=== PATIENT | female | born 1945 | race American Indian/Alaskan Native ===

== ENCOUNTER 2020-01-16 20:10 | Observation (INO) | payer MEDICARE ==
[2020-01-16] MEDS ORDERED: SODIUM CHLORIDE 0.9% 1000 ML 1,000 ML IV ONE (21:14)
[2020-01-16] MEDS ORDERED: VANCOMYCIN 750 MG in SODIUM CHLORIDE 0.9% 500 ML 500 ML IV ONE (21:15)
[2020-01-16] MEDS ORDERED: SODIUM CHLORIDE 0.9% 1000 ML IV SOLN IV ONE (21:15)
[2020-01-16] MEDS ORDERED: IPRATROPIUM/ALBUTEROL SULFATE 3 ML AMPUL.NEB IH ONE (21:15)
[2020-01-16] MEDS ORDERED: methylPREDNISolone Sod Succinate 125 MG/2 ML INJ IV ONE (21:19)
--- NOTE | 2020-01-16 21:31 | Emergency Department Report ---
ED Shortness of Breath HPI - General Chief Complaint: Dyspnea/Respdistress Stated Complaint: WANG/COPD/LUNG CA Time Seen by Provider: 01/16/20 21:13 Source: patient Mode of arrival: Ambulatory Limitations: No Limitations - History of Present Illness Initial Comments: CC: " Since the cancer, I have been having trouble breathing." HPI: This is a 74-year-old female with history of COPD, stage II lung cancer and anxiety who presents with shortness of breath. After receiving chemotherapy treatment this morning, she went home. She had shortness of breath. She has stage II lung cancer. She was diagnosed 4 years ago. Her chemotherapy this is Dr. Narvaez. She received medical care at [facility] and [facility]. She has chronic cough. She has chronic sputum production. She denies fever. She denies wheezing. She denies chest pain. She denies leg pain. She denies abdominal pain. She used MDI today with minimal relief. Patient explains that she has had severe shortness of breath since the diagnosis of cancer 4 years ago. Her son brought her to the closest hospital due to severe shortness of breath. According to daughter Sejal [phone], patient has severe anxiety. MD Complaint: shortness of breath, cough -: Gradual, This afternoon Severity: moderate Consistency: constant Improves With: nothing Worsens With: nothing Known History Of: COPD, other (stage II lung CA) Associated Symptoms: cough, sputum production - Related Data Allergies Allergy/AdvReac Type Severity Reaction Status Date / Time citric acid Allergy Anaphylaxis Verified 01/16/20 20:22 Sulfa (Sulfonamide Allergy Anaphylaxis Verified 01/16/20 20:22 Antibiotics) iv contrast Allergy Hives Uncoded 01/16/20 22:38 ED Review of Systems ROS: Stated complaint: WANG/COPD/LUNG CA Other details as noted in HPI Comment: All other systems reviewed and negative Constitutional: denies: fever Respiratory: cough, shortness of breath Cardiovascular: denies: chest pain Gastrointestinal: denies: abdominal pain, nausea, vomiting Skin: denies: rash, lesions Neurological: denies: headache, weakness Psychiatric: anxiety ED Past Medical Hx - Past Medical History Previous Medical History?: Yes Hx COPD: Yes Additional medical history: Lung CA - Surgical History Past Surgical History?: No - Social History Smoking Status: Former Smoker Substance Use Type: None ED Physical Exam - General Limitations: No Limitations General appearance: alert, in no apparent distress, anxious, other (Speaking full word sentences, frequent cough) - Head Head exam: Present: atraumatic, normocephalic - Eye Eye exam: Present: normal appearance - ENT ENT exam: Present: mucous membranes moist - Neck Neck exam: Present: normal inspection, full ROM - Respiratory Respiratory exam: Present: respiratory distress, wheezes, rales, rhonchi, prolonged expiratory. Absent: stridor, accessory muscle use, decreased breath sounds - Cardiovascular Cardiovascular Exam: Present: normal rhythm, tachycardia, normal heart sounds. Absent: systolic murmur, diastolic murmur, rubs, gallop - GI/Abdominal GI/Abdominal exam: Present: soft, normal bowel sounds. Absent: distended, tenderness, guarding, rebound - Extremities Exam Extremities exam: Present: normal inspection - Neurological Exam Neurological exam: Present: alert, oriented X3 - Psychiatric Psychiatric exam: Present: normal affect, normal mood - Skin Skin exam: Present: warm, dry, intact, normal color. Absent: rash ED Course Vital Signs 01/16/20 01/16/20 01/16/20 20:20 21:16 21:30 Temperature 98.1 F Pulse Rate 121 H 114 H Respiratory 20 30 H Rate Blood Pressure 145/94 142/114 135/86 O2 Sat by Pulse 92 98 Oximetry 01/16/20 01/16/20 21:46 23:19 Temperature Pulse Rate 113 H Respiratory 32 H 20 Rate Blood Pressure 135/86 O2 Sat by Pulse 100 96 Oximetry ED Medical Decision Making - Lab Data Result diagrams: 01/16/20 21:20 01/16/20 21:20 - EKG Data -: EKG Interpreted by Pr EKG shows normal: sinus rhythm, axis, intervals, QRS complexes, ST-T waves Rate: tachycardia - EKG Data 01/16/20 23:32 EKG obtained 2310 EKG interpreted by mi Sinus tachycardia 110 bpm normal axis prolonged QTC no ST elevation nonspecific T wave pattern - Radiology Data Radiology results: report reviewed CHEST 1 VIEW INDICATION / CLINICAL INFORMATION: MAIN. COMPARISON: None available. FINDINGS: SUPPORT DEVICES: Left-sided port with tip terminating in the mid SVC. HEART / MEDIASTINUM: No significant abnormality. LUNGS / PLEURA: Moderate diffuse interstitial opacification. No focal consolidation. No significant effusion. No pneumothorax. ADDITIONAL FINDINGS: No significant additional findings. IMPRESSION: 1. Moderate diffuse interstitial opacification. Findings can be seen in setting of chronic interstitial lung disease. Recommend correlation with recent prior chest imaging if available. Consider further follow-up as warranted. VQ scan low probability for pulmonary embolism - Medical Decision Making Acute COPD exacerbation: Patient's has hypoxia in spite oxygen supplementation patient uses home oxygen 2 L nasal cannula No evidence of pulmonary embolism or pneumonia according to work-up performed emergency department including lung perfusion scan and chest radiograph Patient is admitted to [facility] service Critical care attestation.: If time is entered above; I have spent that time in minutes in the direct care of this critically ill patient, excluding procedure time. ED Disposition Clinical Impression: Acute respiratory failure with hypoxia, COPD with acute exacerbation, Lung cancer Disposition: OP ADMIT IP TO THIS HOSP Is pt being admited?: Yes Does the pt Need Aspirin: No Condition: Fair
[2020-01-16 21:40] LABS: Basophils % (Auto) 0.2 % (0.0-1.8); Eosinophils # (Auto) 0.1 K/mm3 (0.0-0.4); Eosinophils % (Auto) 0.9 % (0.0-4.3); Hematocrit 28.6 % (30.3-42.9); Hemoglobin 8.7 gm/dl (10.1-14.3); Lymphocytes # (Auto) 0.4 K/mm3 (1.2-5.4); Lymphocytes % (Auto) 4.3 % (13.4-35.0); Mean Corpuscular HGB Conc 31 % (30-34); Mean Corpuscular Volume 92 fl (79-97); Monocytes # (Auto) 1.2 K/mm3 (0.0-0.8); Monocytes % (Auto) 11.3 % (0.0-7.3); Platelet Count 526 K/mm3 (140-440); Red Blood Count 3.11 M/mm3 (3.65-5.03); Red Cell Distribution Width 18.2 % (13.2-15.2)
[2020-01-16 21:59] LABS: INR 0.97 (0.87-1.13)
[2020-01-16 22:00] LABS: Partial Thromboplastin Time 27.9 Sec. (24.2-36.6)
[2020-01-16] MEDS ORDERED: VANCOMYCIN 750 MG in SODIUM CHLORIDE 0.9% 250ML 250 ML IV ONE (22:00)
[2020-01-16] MEDS ORDERED: VANCOMYCIN PHARMACY TO DOSE IV SCH (22:00)
[2020-01-16 22:01] LABS: Alanine Aminotransferase 6 units/L (7-56); Albumin 3.6 g/dL (3.9-5); Blood Urea Nitrogen 10 mg/dL (7-17); Calcium 9.8 mg/dL (8.4-10.2); Hemolysis Index 2
[2020-01-16 22:03] LABS: BUN/Creatinine Ratio 20
--- NOTE | 2020-01-16 22:08 | XRay Report ---
CHEST 1 VIEW INDICATION / CLINICAL INFORMATION: MAIN. COMPARISON: None available. FINDINGS: SUPPORT DEVICES: Left-sided port with tip terminating in the mid SVC. HEART / MEDIASTINUM: No significant abnormality. LUNGS / PLEURA: Moderate diffuse interstitial opacification. No focal consolidation. No significant e ffusion. No pneumothorax. ADDITIONAL FINDINGS: No significant additional findings. IMPRESSION: 1. Moderate diffuse interstitial opacification. Findings can be seen in setting of chronic interstiti al lung disease. Recommend correlation with recent prior chest imaging if available. Consider further follow-up as warranted. Signer Name: Krishna Cassidy MD Signed: 01/16/2020 10:04 PM Workstation Name: [id number]
[2020-01-17] MEDS ORDERED: CEFEPIME/NS 2 GM/100 ML 2 GM/100 ML BAG IV SCH
--- NOTE | 2020-01-17 00:28 | Nuclear Medicine Report ---
NUCLEAR MEDICINE PERFUSION LUNG SCAN INDICATION / CLINICAL INFORMATION: Tachycardia dyspnea history of lung cancer. TECHNIQUE: 4.6 mCi of Tc-99m MAA were given by IV. COMPARISON: Chest radiograph dated today's date. FINDINGS: PERFUSION: No significant perfusion defects. ADDITIONAL FINDINGS: None. IMPRESSION: 1. Low probability for pulmonary embolism. Signer Name: Tyrone Hoang MD Signed: 01/17/2020 12:24 AM Workstation Name: [id number]
--- NOTE | 2020-01-17 02:57 | History and Physical Report ---
History of Present Illness Date of examination: 01/17/20 Date of admission: 01/17/20 00:54 Chief complaint: Shortness of breath History of present illness: 74 year old female presenting with shortness of breath and cough going on for about 12-24 hour after receiving chemotherapy for stage II lung cancer. There is history of pleuritic chest pain and chills but no fever. Cough is productive of yellow sputum. Past History Past Medical History: COPD, other (LUNG CANCER) Past Surgical History: No surgical history Social history: no significant social history Family history: no significant family history Medications and Allergies Allergies Allergy/AdvReac Type Severity Reaction Status Date / Time citric acid Allergy Anaphylaxis Verified 01/16/20 20:22 Sulfa (Sulfonamide Allergy Anaphylaxis Verified 01/16/20 20:22 Antibiotics) iv contrast Allergy Hives Uncoded 01/16/20 22:38 Home Medications Medication Instructions Recorded Confirmed Last Taken Type Benzonatate [Tessalon Perles] 100 mg PO Q8HR 01/17/20 01/17/20 Unknown History Latanoprost 0.005% [Xalatan 0.005%] 1 drop OP QPM 01/17/20 01/17/20 Unknown History Mirabegron [Myrbetriq] 25 mg PO DAILY 01/17/20 01/17/20 Unknown History buPROPion [Wellbutrin] 75 mg PO BID 01/17/20 01/17/20 Unknown History dronabinoL [Dronabinol] 2.5 mg PO DAILY 01/17/20 01/17/20 Unknown History Active Meds: Active Medications Albuterol/Ipratropium (Duoneb *Not For Prn Use*) 1 ampul IH QIDRT JEREMY Heparin Sodium (Porcine) (Heparin) 5,000 unit SUB-Q Q12HR JEREMY Cefepime HCl (Cefepime/Ns 2 Gm/100 Ml) 2 gm in 100 mls @ 200 mls/hr IV Q8H [facility]; Protocol Last Admin: 01/17/20 01:37 Dose: 200 mls/hr Documented by: Vancomycin HCl 750 mg/ Sodium (Chloride) 265 mls @ 166.667 mls/hr IV Q18H JEREMY Methylprednisolone Sodium Succinate (Solu-Medrol) 60 mg IV Q8HR [facility] Review of Systems Constitutional: chills, no weight loss, no weight gain, no fever, no sweats, no night sweats, no anorexia, no fatigue, no weakness, no malaise Eyes: bilateral: other (NO BILATERAL EYE SYMPTOM) Ears, nose, mouth and throat: no deferred, no ear pain, no nose pain, no nasal congestion, no nasal discharge Breasts: deferred Cardiovascular: shortness of breath, no chest pain, no orthopnea, no palpitations, no syncope, no lightheadedness Respiratory: cough, shortness of breath, wheezing Gastrointestinal: no abdominal pain, no nausea, no vomiting, no diarrhea, no constipation, no change in bowel habits, no hematemesis, no melena, no hematochezia Genitourinary Female: no Menstruation: postmenopausal Rectal: no pain Musculoskeletal: no neck stiffness, no neck pain, no low back pain, no muscle weakness, no muscle cramps Integumentary: no rash, no pruritis, no redness, no sores, no wounds, no jaundice, no boils, no blisters, no growths, no bullae, no lesions, no darkening of skin, no depigmentation, no acne, no dryness, no color changes Neurological: no weakness, no parathesias, no numbness, no tingling, no seizures, no syncope, no tremors, no vertigo, no headaches, no convulsions, no aphasia, no change in speech, no change in mentation, no confusion, no double vision Psychiatric: no insomnia, no hypersomnia, no change in appetite, no change in libido, no suicidal ideation, no hopelessness, no anhedonia, no confusion Endocrine: no polyphagia, no polydipsia, no polyuria, no nocturia, no excessive sweating, no flushing, no palpatations Hematologic/Lymphatic: no easy bruising, no easy bleeding Exam - Constitutional Vitals: Temp Pulse Resp BP Pulse Ox 97.7 F 102 H 47 H 142/82 99 01/17/20 02:16 01/17/20 02:00 01/17/20 02:00 01/17/20 02:00 01/17/20 02:00 General appearance: Present: mild distress - EENT Eyes: Present: PERRL, EOM intact ENT: hearing intact, clear oral mucosa, dentition normal - Neck Neck: Present: supple, normal ROM. Absent: rigidity, enlarged thyroid, carotid bruits - Respiratory Respiratory: bilateral: diminished, wheezing - Cardiovascular Rhythm: regular Heart Sounds: Present: S1 & S2. Absent: gallop, systolic murmur, diastolic murmur, click - Extremities Extremities: no ischemia, No edema Peripheral Pulses: within normal limits - Abdominal General gastrointestinal: Present: soft, non-tender, non-distended. Absent: tender, distended, rigid Female genitourinary: Present: deferred - Rectal Rectal Exam: deferred - Integumentary Integumentary: Present: clear, warm, dry. Absent: jaundice, clammy - Musculoskeletal Musculoskeletal: strength equal bilaterally HEART Score - HEART Score Risk factors: 1-2 risk factors Troponin: Troponin T < 0.010 ng/mL (0.00-0.029) 01/16/20 21:20 Troponin: < normal limit - Critical Actions Critical Actions: 0-3 pts:0.9-1.7%risk of adverse cardiac event.Candidate for discharge Results - Labs CBC & Chem 7: 01/16/20 21:20 01/16/20 21:20 Labs: Laboratory Last Values WBC 10.4 K/mm3 (4.5-11.0) 01/16/20 21:20 RBC 3.11 M/mm3 (3.65-5.03) L 01/16/20 21:20 Hgb 8.7 gm/dl (10.1-14.3) L 01/16/20 21:20 Hct 28.6 % (30.3-42.9) L 01/16/20 21:20 MCV 92 fl (79-97) 01/16/20 21:20 MCH 28 pg (28-32) 01/16/20 21:20 MCHC 31 % (30-34) 01/16/20 21:20 RDW 18.2 % (13.2-15.2) H 01/16/20 21:20 Plt Count 526 K/mm3 (140-440) H 01/16/20 21:20 Lymph % (Auto) 4.3 % (13.4-35.0) L 01/16/20 21:20 Bland % (Auto) 11.3 % (0.0-7.3) H 01/16/20 21:20 Eos % (Auto) 0.9 % (0.0-4.3) 01/16/20 21:20 Baso % (Auto) 0.2 % (0.0-1.8) 01/16/20 21:20 Lymph # 0.4 K/mm3 (1.2-5.4) L 01/16/20 21:20 Bland # 1.2 K/mm3 (0.0-0.8) H 01/16/20 21:20 Eos # 0.1 K/mm3 (0.0-0.4) 01/16/20 21:20 Baso # 0.0 K/mm3 (0.0-0.1) 01/16/20 21:20 Seg Neutrophils % 83.3 % (40.0-70.0) H 01/16/20 21:20 Seg Neutrophils # 8.6 K/mm3 (1.8-7.7) H 01/16/20 21:20 PT 13.1 Sec. (12.2-14.9) 01/16/20 21:20 INR 0.97 (0.87-1.13) 01/16/20 21:20 APTT 27.9 Sec. (24.2-36.6) 01/16/20 21:20 Sodium 140 mmol/L (137-145) 01/16/20 21:20 Potassium 3.9 mmol/L (3.6-5.0) 01/16/20 21:20 Chloride 101.1 mmol/L (98-107) 01/16/20 21:20 Carbon Dioxide 22 mmol/L (22-30) 01/16/20 21:20 Anion Gap 21 mmol/L 01/16/20 21:20 BUN 10 mg/dL (7-17) 01/16/20 21:20 Creatinine 0.5 mg/dL (0.6-1.2) L 01/16/20 21:20 Estimated GFR > 60 ml/min 01/16/20 21:20 BUN/Creatinine Ratio 20 % 01/16/20 21:20 Glucose 125 mg/dL (65-100) H 01/16/20 21:20 Lactic Acid 1.30 mmol/L (0.7-2.0) 01/17/20 00:41 Calcium 9.8 mg/dL (8.4-10.2) 01/16/20 21:20 Total Bilirubin 0.20 mg/dL (0.1-1.2) 01/16/20 21:20 AST 16 units/L (5-40) 01/16/20 21:20 ALT 6 units/L (7-56) L 01/16/20 21:20 Alkaline Phosphatase 75 units/L (35-129) 01/16/20 21:20 Troponin T < 0.010 ng/mL (0.00-0.029) 01/16/20 21:20 NT-Pro-B Natriuret Pep 198.9 pg/mL (0-900) 01/16/20 21:20 Total Protein 7.6 g/dL (6.3-8.2) 01/16/20 21:20 Albumin 3.6 g/dL (3.9-5) L 01/16/20 21:20 Albumin/Globulin Ratio 0.9 % 01/16/20 21:20 Microbiology: Microbiology 01/16/20 21:27 Peripheral/Venous Blood Culture - Preliminary Culture in Progress 01/16/20 21:20 Peripheral/Venous Blood Culture - Preliminary Culture in Progress Velázquez/IV: IV Catheter Type [Right Hand] INT / Saline Lock Assessment and Plan - Patient Problems (1) Acute respiratory failure with hypoxia Current Visit: Yes Status: Acute Plan to address problem: 1.OXYGEN PER RESPIRATORY PROTOCOL 2. DUONEBULIZER 3. I.V SOLUMEDROL (2) COPD with acute exacerbation Current Visit: Yes Status: Acute Plan to address problem: 1. DUONEBULIZER 2. I.V SOLUMEDROL 3. I.V CEFEPIME ANTIBIOTIC 4. ROBITUSSIN FOR COUGH 5. OXYGEN PER RESPIRTATORY PROTOCOL (3) Lung cancer Current Visit: Yes Status: Acute Plan to address problem: 1. WILL CONSULT ONCOLOGY WHEN AVAILABLE 2. PATIENT TO CONTINUE ONGOING CHEMOTHERAPY PER ONCOLOGY PROGRAM.
[2020-01-17] MEDS: methylPREDNISolone Sod Succinate 40 MG/1 ML INJ IV SCH ×3 (05:13→21:15)
[2020-01-17] MEDS: IPRATROPIUM/ALBUTEROL SULFATE 3 ML AMPUL.NEB IH SCH ×4 (09:48→20:18)
[2020-01-17] MEDS: HEPARIN 5,000 UNIT/1 ML VIAL SUB-Q SCH ×2 (09:59→21:15)
[2020-01-17] MEDS ORDERED: VANCOMYCIN 750 MG in SODIUM CHLORIDE 0.9% 250ML 250 ML IV SCH ×2 (10:00→22:00)
[2020-01-17] MEDS: CEFEPIME/NS 2 GM/100 ML 2 GM/100 ML BAG IV SCH ×2 (10:03→21:14)
[2020-01-17] MEDS ORDERED: MAGNESIUM HYDROXIDE (MOM) ORAL LIQD UDC PO ONE (13:10)
[2020-01-17] MEDS ORDERED: MAGNESIUM HYDROXIDE (MOM) ORAL LIQD UDC PO PRN (13:10)
[2020-01-17] MEDS: BENZONATATE 100 MG CAP PO SCH ×2 (13:32→21:15)
[2020-01-17 14:40] LABS: Creatine Kinase MB 4.7 ng/mL (0.0-4.0)
--- NOTE | 2020-01-17 19:27 | Event Note ---
Date: 01/17/20 I have seen and examined the patient at the bedside this morning Patient was admitted early this morning with acute respiratory failure secondary to Acute exacerbation of COPD, patient has history of lung cancer Patient's medications patient's chart reviewed Agree with the current management Closely monitor the patient and adjust management as needed Plan of care reviewed with the patient and her nurse
[2020-01-17] MEDS: buPROPion 75 MG TAB PO SCH (21:15)
[2020-01-18] MEDS: methylPREDNISolone Sod Succinate 40 MG/1 ML INJ IV SCH (05:01)
[2020-01-18] MEDS: BENZONATATE 100 MG CAP PO SCH (05:01)
[2020-01-18] MEDS: IPRATROPIUM/ALBUTEROL SULFATE 3 ML AMPUL.NEB IH SCH (08:03)
[2020-01-18] MEDS: CEFEPIME/NS 2 GM/100 ML 2 GM/100 ML BAG IV SCH (09:58)
[2020-01-18] MEDS: HEPARIN 5,000 UNIT/1 ML VIAL SUB-Q SCH (09:59)
[2020-01-18] MEDS ORDERED: DRONABINOL 2.5 MG CAP PO SCH (10:00)
[2020-01-18] MEDS ORDERED: NON-FORMULARY EACH (Mirabegron [Myrbetriq] 25 MG) PO SCH (10:00)
[2020-01-18] MEDS: buPROPion 75 MG TAB PO SCH (10:02)
--- NOTE | 2020-01-18 11:00 | Discharge Summary ---
Providers - Providers Date of Admission: 01/17/20 00:54 Date of discharge: 01/18/20 Attending physician: LILLI WHITESIDE Primary care physician: ABRAHAM GARCIA Hospitalization Condition: Fair Disposition: DC-01 TO HOME OR SELFCARE Time spent for discharge: 32 min Core Measure Documentation - Palliative Care Palliative Care/ Comfort Measures: Not Applicable - Core Measures Any of the following diagnoses?: none Exam - Constitutional Vitals: Temp Pulse Resp BP Pulse Ox 99.0 F 100 H 18 105/49 100 01/18/20 06:02 01/18/20 08:03 01/18/20 08:03 01/18/20 06:02 01/18/20 09:50 General appearance: Present: no acute distress, well-nourished - EENT Eyes: Present: PERRL, EOM intact - Neck Neck: Present: supple, normal ROM - Respiratory Respiratory effort: normal Respiratory: bilateral: diminished, rales, negative: rhonchi, wheezing - Cardiovascular Rhythm: regular Heart Sounds: Present: S1 & S2 - Extremities Extremities: no ischemia, No edema - Abdominal General gastrointestinal: Present: soft, non-tender, non-distended, normal bowel sounds - Integumentary Integumentary: Present: clear, warm - Musculoskeletal Musculoskeletal: strength equal bilaterally, generalized weakness - Psychiatric Psychiatric: appropriate mood/affect, cooperative - Neurologic Neurologic: CNII-XII intact, moves all extremities Plan Activity: advance as tolerated Diet: regular Additional Instructions: Advised to see your private lever miller in 3 to 5 days. Advised to continue home oxygen, nebulizers as before. If you have worsening symptoms contact MD or go to emergency room as needed Follow up with: ABRAHAM GARCIA MD [Primary Care Provider] - 7 Days Prescriptions: levoFLOXacin [Levaquin TAB] 500 mg PO QDAY #5 tablet Prednisone [predniSONE 10 mg (6-Day Pack, 21 Tabs)] 10 mg PO .TAPER #1 tab.ds.pk Albuterol Mdi (or & Nicu Only) [ProAir HFA Inhaler] 2 puff IH QID PRN #8.5 gram PRN Reason: Shortness Of Breath
[2020-01-18] MEDS ORDERED: IPRATROPIUM/ALBUTEROL SULFATE 3 ML AMPUL.NEB IH SCH (14:00)
[2020-01-18 17:44] VITALS: BP 119/70
== END 2020-01-18 16:55 | disposition home or self-care (01) ==
LOC: ED 20:10 → 4A 01-17 00:54 → 3A 01-17 03:05
PROVIDERS: ADMIT Internal Medicine; ATTEND Internal Medicine
DX: J96.01 Acute respiratory failure with hypoxia (principal); J44.1 Chronic obstructive pulmonary disease with (acute) exacerbation; C34.90 Malignant neoplasm of unspecified part of unspecified bronchus or lung
CPT/HCPCS: 36415; 71045; 78580; 80053; 82140; 82550; 82553; 83880; 84484; 85025; 85610; 85730; 87040; 93005; 94640; 94644; 94760; 96365; 96366; 96367; 96368; 96372; 96375; 96376; 99285; A9540; G0378; J0692; J1644; J2920; J2930; J3370; J7030; J7050; Q0167

== ENCOUNTER 2020-01-30 21:58 | Inpatient (IN) | payer MEDICARE ==
[2020-01-30] MEDS ORDERED: MAGNESIUM SULFATE 2 GM/50 ML BAG IV ONE (22:40)
[2020-01-30] MEDS ORDERED: methylPREDNISolone Sod Succinate 125 MG/2 ML INJ IV ONE (22:40)
[2020-01-30] MEDS ORDERED: ALBUTEROL 2.5 MG/3 ML NEBU IH ONE (22:40)
[2020-01-30] MEDS ORDERED: IPRATROPIUM 0.02% NEBU 2.5 ML IH ONE (22:40)
--- NOTE | 2020-01-30 22:46 | Emergency Department Report ---
HPI - General Chief Complaint: Dyspnea/Respdistress Time Seen by Provider: 01/30/20 22:29 - HPI HPI: Room 24 Patient is a 74-year-old female present with a chief complaint of shortness of breath. The patient states she is felt short of breath for the past 2 weeks after her initial chemotherapy treatment. Patient states she had chemotherapy again today and shortness of breath worsened. Patient missed any cough that is nonproductive. Patient complains of dyspnea on exertion. The patient states approximate 2 hours ago she had grabbing left-sided chest pain that lasted 15 to 20 minutes. Patient denies nausea/vomiting or diaphoresis. Patient states she is uncertain if she is had a fever but she has had "hot flashes" at times. ED Past Medical Hx - Past Medical History Hx of Cancer: Yes (Lung CA on chemotherapy) Hx COPD: Yes (2 L home O2) Additional medical history: Lung CA - Surgical History Additional Surgical History: Port placement - Family History Family history: no significant - Social History Smoking Status: Former Smoker (None x6 years) Substance Use Type: None (Denies illicit drug use), Alcohol (Frequently) - Medications Home Medications: Home Medications Medication Instructions Recorded Confirmed Last Taken Type Benzonatate [Tessalon Perles] 100 mg PO Q8HR 01/17/20 01/17/20 Unknown History Latanoprost 0.005% 1 drop OP QPM 01/17/20 01/17/20 Unknown History Mirabegron [Myrbetriq] 25 mg PO DAILY 01/17/20 01/17/20 Unknown History buPROPion [Wellbutrin] 75 mg PO BID 01/17/20 01/17/20 Unknown History dronabinoL [Dronabinol] 2.5 mg PO DAILY 01/17/20 01/17/20 Unknown History Albuterol Mdi (or & Nicu Only) 2 puff IH QID PRN #8.5 gram 01/18/20 Unknown Rx [ProAir HFA Inhaler] Prednisone [predniSONE 10 mg 10 mg PO .TAPER #1 tab.ds.pk 01/18/20 Unknown Rx (6-Day Pack, 21 Tabs)] levoFLOXacin [Levaquin TAB] 500 mg PO QDAY #5 tablet 01/18/20 Unknown Rx ED Review of Systems ROS: Stated complaint: SOB,COPD,ASTHMA Other details as noted in HPI Constitutional: fever (?). denies: diaphoresis Respiratory: cough, shortness of breath, SOB with exertion Cardiovascular: chest pain, dyspnea on exertion Endocrine: no symptoms reported Gastrointestinal: denies: nausea, vomiting Physical Exam - Physical Exam Vital Signs: Vital Signs 01/30/20 22:11 Temperature 97.6 F Pulse Rate 124 H Respiratory 18 Rate Blood Pressure 122/75 O2 Sat by Pulse 100 Oximetry Physical Exam: GENERAL: The patient is well-developed well-nourished elderly female sitting in stretcher exhibiting increased work of breathing. [] HEENT: Normocephalic. Atraumatic. Extraocular motions are intact. Patient has moist mucous membranes. NECK: Supple. Trachea midline CHEST/LUNGS: Tachypnea, accessory muscle use, faint wheezing with diminished sounds HEART/CARDIOVASCULAR: Regular. There is tachycardia. There is no gallop rub or murmur. ABDOMEN: Abdomen is soft, nontender. Patient has normal bowel sounds. There is no abdominal distention. SKIN: There is no rash. There is no edema. There is no diaphoresis. NEURO: The patient is awake, alert, and oriented. The patient is cooperative. The patient has normal speech MUSCULOSKELETAL: There is no evidence of acute injury. ED Course Vital Signs 01/30/20 22:11 Temperature 97.6 F Pulse Rate 124 H Respiratory 18 Rate Blood Pressure 122/75 O2 Sat by Pulse 100 Oximetry ED Medical Decision Making - Lab Data Result diagrams: 01/30/20 22:50 01/30/20 22:50 Laboratory Tests 01/30/20 01/30/20 01/30/20 22:50 22:50 22:50 WBC 10.4 RBC 3.60 L Hgb 10.7 Hct 32.8 MCV 91 MCH 30 MCHC 33 RDW 16.9 H Plt Count 140 Lymph % (Auto) 5.4 L [place] % (Auto) 6.7 Eos % (Auto) 1.9 Baso % (Auto) 0.2 Lymph # (Auto) 0.6 L [place] # (Auto) 0.7 Eos # (Auto) 0.2 Baso # (Auto) 0.0 Seg Neutrophils % 85.8 H Seg Neutrophils # 9.0 H PT 13.0 INR 0.96 APTT 26.6 D-Dimer 3243.14 H Sodium 138 Potassium 4.4 Chloride 96.9 L Carbon Dioxide 25 Anion Gap 21 BUN 13 Creatinine 0.5 L Estimated GFR > 60 BUN/Creatinine Ratio 26 Glucose 173 H Calcium 10.0 Total Bilirubin 0.40 AST 17 ALT 11 Alkaline Phosphatase 92 Troponin T < 0.010 NT-Pro-B Natriuret Pep 206.2 Total Protein 7.4 Albumin 4.2 Albumin/Globulin Ratio 1.3 - EKG Data -: EKG Interpreted by Me EKG shows normal: sinus rhythm Rate: tachycardia (111 bpm) - EKG Data When compared to previous EKG there are: previous EKG unavailable Interpretation: nonspecific ST-T wave kristel (T wave inversion in lead aVL) - Radiology Data Radiology results: report reviewed (Chest x-ray, VQ scan), image reviewed (Chest x-ray, VQ scan) interpreted by me: Chest x-ray-no definite focal infiltrate, no pneumothorax Findings [address] [address] Nuclear Medicine Report Signed Patient: YUMIKO DAHL MR#: [id number] : 1945 Acct:[id number] Age/Sex: 74 / F ADM Date: 01/30/20 Loc: ED Attending Dr: Ordering Physician: WILFRID YODER MD Date of Service: 01/30/20 Proc edure(s): NM perfusion only lung scan Accession Number(s): [id number] cc: WILFRID YODER MD NUCLEAR MEDICINE PERFUSION LUNG SCAN INDICATION: Shortness of breath. TECHNIQUE: 5.5 mCi of Tc-99m MAA were given by IV. COMPARISON: Chest radiograph dated 01/30/2020., Perfusion scan 01/16/2020 FINDINGS: PERFUSION: No significant perfusion defects. No interval change ADDITIONAL FINDINGS: None. IMPRESSION: 1. Low probability for pulmonary embolism. Signer Name: Phu Duffy MD Signed: 01/31/2020 1:50 AM Workstation Name: [id number] Transcribed By: TL Dictated By: Phu Duffy MD Electronically Authenticated By: Phu Duffy MD Signed Date/Time: 01/31/20149 DD/ 7 TD/TT: Findings [address] [address] XRay Report Signed Patient: YUMIKO DAHL MR#: [id number] : 1945 Acct:[id number] Age/Sex: 74 / F ADM Date: 01/30/20 Loc: ED Attending Dr: Ute hummel Physician: BEREKET BALDWIN MD Date of Service: 01/30/20 Procedure(s): XR chest 1V ap Accession Number(s): [id number] cc: BEREKET BALDWIN MD Fluoro Time In Minutes: CHEST 1 VIEW 01/30/2020 10:48 PM INDICATION / CLINICAL INFORMATION: sob after chemo. COMPARISON: 01/30/2020 FINDINGS: SUPPORT DEVICES: Left internal jugular Port-A-Cath again projects over SVC. HEART / MEDIASTINUM: Right hilar fullness/mass again noted. LUNGS / PLEURA: Chronic interstitial disease, unchanged. No acute infiltrate. No pneumothorax. ADDITIONAL FINDINGS: No significant additional findings. IMPRESSION: 1. Stable chest with right hilar fullness suggestive for residual tumor and interstitial prominence. Signer Name: Phu Duffy MD Signed: 01/30/2020 11:17 PM Workstation Name: [id number] Transcribed By: TL Dictated By: Phu Duffy MD Electronically Authenticated By: Phu Duffy MD Signed Date/Time: 01/30/202316 DD/ 14 TD/TT: - Differential Diagnosis COPD exacerbation, pneumonia, PE, pneumothorax, CHF Critical care attestation.: If time is entered above; I have spent that time in minutes in the direct care o f this critically ill patient, excluding procedure time. ED Disposition Clinical Impression: COPD exacerbation, Chest pain Disposition: OP ADMIT IP TO THIS HOSP Is pt being admited?: Yes Does the pt Need Aspirin: Yes Condition: Fair Instructions: Chronic Obstructive Pulmonary Disease (ED), Chest Pain (ED) Referrals: PRIMARY CARE, [Primary Care Provider] - 3-5 Days Time of Disposition: 02:27 (Hospitalist paged (Dr Chung))
[2020-01-30 23:20] LABS: Hematocrit 32.8 % (30.3-42.9); Hemoglobin 10.7 gm/dl (10.1-14.3); Mean Corpuscular Volume 91 fl (79-97)
[2020-01-30 23:21] LABS: Basophils % (Auto) 0.2 % (0.0-1.8); Eosinophils # (Auto) 0.2 K/mm3 (0.0-0.4); Eosinophils % (Auto) 1.9 % (0.0-4.3); Lymphocytes # (Auto) 0.6 K/mm3 (1.2-5.4); Lymphocytes % (Auto) 5.4 % (13.4-35.0); Mean Corpuscular HGB Conc 33 % (30-34); Monocytes # (Auto) 0.7 K/mm3 (0.0-0.8); Monocytes % (Auto) 6.7 % (0.0-7.3); Platelet Count 140 K/mm3 (140-440); Red Cell Distribution Width 16.9 % (13.2-15.2)
--- NOTE | 2020-01-30 23:21 | XRay Report ---
CHEST 1 VIEW 01/30/2020 10:48 PM INDICATION / CLINICAL INFORMATION: sob after chemo. COMPARISON: 01/30/2020 FINDINGS: SUPPORT DEVICES: Left internal jugular Port-A-Cath again projects over SVC. HEART / MEDIASTINUM: Right hilar fullness/mass again noted. LUNGS / PLEURA: Chronic interstitial disease, unchanged. No acute infiltrate. No pneumothorax. ADDITIONAL FINDINGS: No significant additional findings. IMPRESSION: 1. Stable chest with right hilar fullness suggestive for residual tumor and interstitial prominence. Signer Name: Phu Duffy MD Signed: 01/30/2020 11:17 PM Workstation Name: [id number]
[2020-01-30 23:27] LABS: INR 0.96 (0.87-1.13)
[2020-01-30 23:28] LABS: Partial Thromboplastin Time 26.6 Sec. (24.2-36.6)
[2020-01-30 23:41] LABS: Alanine Aminotransferase 11 units/L (7-56); Albumin 4.2 g/dL (3.9-5); Blood Urea Nitrogen 13 mg/dL (7-17); Hemolysis Index 1
[2020-01-30 23:54] LABS: BUN/Creatinine Ratio 26
--- NOTE | 2020-01-31 01:54 | Nuclear Medicine Report ---
NUCLEAR MEDICINE PERFUSION LUNG SCAN INDICATION: Shortness of breath. TECHNIQUE: 5.5 mCi of Tc-99m MAA were given by IV. COMPARISON: Chest radiograph dated 01/30/2020., Perfusion scan 01/16/2020 FINDINGS: PERFUSION: No significant perfusion defects. No interval change ADDITIONAL FINDINGS: None. IMPRESSION: 1. Low probability for pulmonary embolism. Signer Name: Phu Duffy MD Signed: 01/31/2020 1:50 AM Workstation Name: [id number]
[2020-01-31] MEDS ORDERED: ASPIRIN 325 MG TAB PO ONE (02:28)
[2020-01-31] MEDS ORDERED: ASPIRIN 325 MG TAB ONE (02:48)
[2020-01-31] MEDS ORDERED: MORPHINE 2 MG/1 ML INJ IV PRN (03:56)
[2020-01-31] MEDS ORDERED: ONDANSETRON 4 MG/2 ML INJ IV PRN (04:00)
[2020-01-31] MEDS ORDERED: NITROGLYCERIN 0.4 MG TAB SUBL SL PRN (04:08)
[2020-01-31] MEDS ORDERED: ACETAMINOPHEN 325 MG TAB PO PRN (04:14)
--- NOTE | 2020-01-31 04:38 | History and Physical Report ---
History of Present Illness Date of examination: 01/31/20 Date of admission: 01/31/20 02:30 Chief complaint: Shortness Of breath History of present illness: 74 year old female who presents with shortness of breath going on for 2 weeks and occurs after chemotherapy sections. Symptom is associated with chest pain and dry cough. There is no history of fever, chills or diaphoresis. Past History Past Medical History: COPD, other (LUNG CANCER) Past Surgical History: Other (PORT PLACEMENT) Social history: no significant social history Family history: no significant family history Medications and Allergies Allergies Allergy/AdvReac Type Severity Reaction Status Date / Time citric acid Allergy Anaphylaxis Verified 01/16/20 20:22 Sulfa (Sulfonamide Allergy Anaphylaxis Verified 01/16/20 20:22 Antibiotics) iv contrast Allergy Hives Uncoded 01/16/20 22:38 Home Medications Medication Instructions Recorded Confirmed Last Taken Type Benzonatate [Tessalon Perles] 100 mg PO Q8HR 01/17/20 01/17/20 Unknown History Latanoprost 0.005% 1 drop OP QPM 01/17/20 01/17/20 Unknown History Mirabegron [Myrbetriq] 25 mg PO DAILY 01/17/20 01/17/20 Unknown History buPROPion [Wellbutrin] 75 mg PO BID 01/17/20 01/17/20 Unknown History dronabinoL [Dronabinol] 2.5 mg PO DAILY 01/17/20 01/17/20 Unknown History Albuterol Mdi (or & Nicu Only) 2 puff IH QID PRN #8.5 gram 01/18/20 Unknown Rx [ProAir HFA Inhaler] Prednisone [predniSONE 10 mg 10 mg PO .TAPER #1 tab.ds.pk 01/18/20 Unknown Rx (6-Day Pack, 21 Tabs)] levoFLOXacin [Levaquin TAB] 500 mg PO QDAY #5 tablet 01/18/20 Unknown Rx Active Meds: Active Medications Acetaminophen (Tylenol) 650 mg PO Q4H PRN PRN Reason: Headache Albuterol/Ipratropium (Duoneb *Not For Prn Use*) 1 ampul IH QIDRT [facility] Aspirin (Aspirin) 325 mg PO QDAY [facility] Heparin Sodium (Porcine) (Heparin) 5,000 unit SUB-Q Q12HR [facility] Levofloxacin/Dextrose (Levaquin 750mg/150ml) 750 mg in 150 mls @ 100 mls/hr IV Q24HR [facility]; Protocol Methylprednisolone Sodium Succinate (Solu-Medrol) 60 mg IV Q8HR [facility] Morphine Sulfate (Morphine) 2 mg IV Q4H PRN PRN Reason: Pain, Moderate (4-6) Nitroglycerin (Nitro-Bid 2%) 0.5 inch TP TIDNTG [facility]; Protocol Nitroglycerin (Nitrostat) 0.4 mg SL .Q5MIN PRN PRN Reason: Chest Pain Ondansetron HCl (Zofran) 4 mg IV Q8H PRN PRN Reason: Nausea And Vomiting Review of Systems Constitutional: weakness, no weight loss, no weight gain, no fever, no chills, no sweats, no night sweats Eyes: bilateral: other (NO BILATERAL EYE SYMPTOMS) Ears, nose, mouth and throat: no ear pain, no ear discharge, no nose pain, no nasal congestion, no nasal discharge, no mouth pain, no dysphagia, no sore throat Breasts: deferred Cardiovascular: chest pain, shortness of breath, no orthopnea, no rapid/irregular heart beat, no syncope, no lightheadedness Respiratory: cough, shortness of breath, no cough with sputum, no excessive sputum, no hemoptysis, no dyspnea on exertion, no congestion, no wheezing Gastrointestinal: no abdominal pain, no nausea, no vomiting, no diarrhea, no con stipation, no change in bowel habits, no hematemesis, no melena, no hematochezia, no loss of appetite, no early satiety Genitourinary Female: no pelvic pain, no flank pain, no dysuria, no urinary frequency, no urgency, no mixed incontinence, no hematuria Menstruation: no premenarcheal, no ammenorrhea, no period normal Rectal: no pain, no itching Musculoskeletal: no neck stiffness, no neck pain, no low back pain, no hot joints Integumentary: no rash, no pruritis, no redness, no sores, no wounds, no jaundice, no boils, no bullae Neurological: no paralysis, no weakness, no parathesias, no numbness, no tingling, no seizures, no syncope, no tremors, no ataxia, no headaches, no migraines Psychiatric: no anxiety, no hypersomnia, no change in appetite, no depression, no hopelessness, no anhedonia Endocrine: no cold intolerance, no heat intolerance, no polyuria, no nocturia Hematologic/Lymphatic: no easy bruising, no easy bleeding Exam - Constitutional Vitals: Temp Pulse Resp BP Pulse Ox 97.6 F 106 H 18 114/69 99 01/30/20 22:11 01/31/20 03:01 01/31/20 03:01 01/31/20 03:01 01/31/20 03:01 General appearance: Present: no acute distress - EENT Eyes: Present: PERRL, EOM intact ENT: hearing intact, clear oral mucosa - Neck Neck: Present: supple, normal ROM - Respiratory Respiratory effort: normal - Cardiovascular Rhythm: regular Heart Sounds: Present: S1 & S2. Absent: gallop, systolic murmur, diastolic murmur, click - Extremities Extremities: no ischemia, No edema Peripheral Pulses: within normal limits - Abdominal General gastrointestinal: Present: soft, non-tender, non-distended. Absent: tender, distended, rigid, mass Female genitourinary: Present: deferred - Rectal Rectal Exam: deferred - Integumentary Integumentary: Present: clear, warm, dry. Absent: jaundice - Musculoskeletal Musculoskeletal: generalized weakness - Psychiatric Psychiatric: appropriate mood/affect HEART Score - HEART Score Age: > 65 Risk factors: 1-2 risk factors Troponin: Troponin T < 0.010 ng/mL (0.00-0.029) 01/30/20 22:50 Troponin: < normal limit - Critical Actions Critical Actions: 0-3 pts:0.9-1.7%risk of adverse cardiac event.Candidate for discharge Results - Labs CBC & Chem 7: 01/30/20 22:50 01/30/20 22:50 Labs: Laboratory Last Values WBC 10.4 K/mm3 (4.5-11.0) 01/30/20 22:50 RBC 3.60 M/mm3 (3.65-5.03) L 01/30/20 22:50 Hgb 10.7 gm/dl (10.1-14.3) 01/30/20 22:50 Hct 32.8 % (30.3-42.9) 01/30/20 22:50 MCV 91 fl (79-97) 01/30/20 22:50 MCH 30 pg (28-32) 01/30/20 22:50 MCHC 33 % (30-34) 01/30/20 22:50 RDW 16.9 % (13.2-15.2) H 01/30/20 22:50 Plt Count 140 K/mm3 (140-440) 01/30/20 22:50 Lymph % (Auto) 5.4 % (13.4-35.0) L 01/30/20 22:50 [place] % (Auto) 6.7 % (0.0-7.3) 01/30/20 22:50 Eos % (Auto) 1.9 % (0.0-4.3) 01/30/20 22:50 Baso % (Auto) 0.2 % (0.0-1.8) 01/30/20 22:50 Lymph # (Auto) 0.6 K/mm3 (1.2-5.4) L 01/30/20 22:50 [place] # (Auto) 0.7 K/mm3 (0.0-0.8) 01/30/20 22:50 Eos # (Auto) 0.2 K/mm3 (0.0-0.4) 01/30/20 22:50 Baso # (Auto) 0.0 K/mm3 (0.0-0.1) 01/30/20 22:50 Seg Neutrophils % 85.8 % (40.0-70.0) H 01/30/20 22:50 Seg Neutrophils # 9.0 K/mm3 (1.8-7.7) H 01/30/20 22:50 PT 13.0 Sec. (12.2-14.9) 01/30/20 22:50 INR 0.96 (0.87-1.13) 01/30/20 22:50 APTT 26.6 Sec. (24.2-36.6) 01/30/20 22:50 D-Dimer 3243.14 ng/mlDDU (0-234) H 01/30/20 22:50 Sodium 138 mmol/L (137-145) 01/30/20 22:50 Potassium 4.4 mmol/L (3.6-5.0) 01/30/20 22:50 Chloride 96.9 mmol/L (98-107) L 01/30/20 22:50 Carbon Dioxide 25 mmol/L (22-30) 01/30/20 22:50 Anion Gap 21 mmol/L 01/30/20 22:50 BUN 13 mg/dL (7-17) 01/30/20 22:50 Creatinine 0.5 mg/dL (0.6-1.2) L 01/30/20 22:50 Estimated GFR > 60 ml/min 01/30/20 22:50 BUN/Creatinine Ratio 26 % 01/30/20 22:50 Glucose 173 mg/dL (65-100) H 01/30/20 22:50 Calcium 10.0 mg/dL (8.4-10.2) 01/30/20 22:50 Total Bilirubin 0.40 mg/dL (0.1-1.2) 01/30/20 22:50 AST 17 units/L (5-40) 01/30/20 22:50 ALT 11 units/L (7-56) 01/30/20 22:50 Alkaline Phosphatase 92 units/L (35-129) 01/30/20 22:50 Troponin T < 0.010 ng/mL (0.00-0.029) 01/30/20 22:50 NT-Pro-B Natriuret Pep 206.2 pg/mL (0-900) 01/30/20 22:50 Total Protein 7.4 g/dL (6.3-8.2) 01/30/20 22:50 Albumin 4.2 g/dL (3.9-5) 01/30/20 22:50 Albumin/Globulin Ratio 1.3 % 01/30/20 22:50 Velázquez/IV: IV Catheter Type [Right INT / Saline Lock Forearm] Assessment and Plan - Patient Problems (1) COPD exacerbation Current Visit: Yes Status: Acute Plan to address problem: 1. I.V SOLUMEDROL 2. I.V LEVAQUIN ANTIBIOTIC 3. DUO NEBULIZER 4. ROBITUSSIN FOR COUGH 5. OXYGEN PER RESPIRATORY THERAPY PROTOCOL (2) Chest pain Current Visit: Yes Status: Acute Plan to address problem: 1. NPO 2. SERIAL CARDIAC ENZYMES 3. CARDIOLOGY CONSULT 4. I.V MORPHINE FOR PAIN 5. I.V ZOFRAN FOR NAUSEA AND VOMITING 6. NITROGLYCERIN (PASTE AND SUBLIGUAL TABLETS) 7 . ASPIRIN PO 8. TYLENOL FOR HEADACHE
[2020-01-31] MEDS: methylPREDNISolone Sod Succinate 40 MG/1 ML INJ IV SCH ×3 (05:51→22:40)
[2020-01-31] MEDS: NITROGLYCERIN 2% OINT 1 GM TP SCH ×4 (05:52→17:50)
[2020-01-31] MEDS: HEPARIN 5,000 UNIT/1 ML VIAL SUB-Q SCH ×3 (05:52→22:40)
[2020-01-31 06:20] LABS: Creatine Kinase MB 4.4 ng/mL (0.0-4.0)
[2020-01-31] MEDS: IPRATROPIUM/ALBUTEROL SULFATE 3 ML AMPUL.NEB IH SCH ×4 (07:56→21:17)
[2020-01-31] MEDS: ASPIRIN 325 MG TAB PO SCH (12:19)
--- NOTE | 2020-01-31 13:58 | Consultation ---
History of Present Illness Consult date: 01/31/20 Requesting physician: YOSEPH VERDUGO Consult reason: chest pain History of present illness: The pt is a 74 year old female with a past medical history of lung cancer, currently undergoing chemotherapy, COPD. She is previously unknown to our practice. She is lethargic on evaluation and thus HPI is obtained per the chart. She presented with c/o SOB and chest pain for 2 weeks prior to arrival. Her symptoms reportedly occur after chemotherapy sections. Pt also c/o dry cough. There is no history of fever, chills or diaphoresis. Past History Past Medical History: COPD, other (as per HPI) Past Surgical History: Other (PORT PLACEMENT) Social history: no significant social history Family history: no significant family history Medications and Allergies Allergies Allergy/AdvReac Type Severity Reaction Status Date / Time citric acid Allergy Anaphylaxis Verified 01/16/20 20:22 Sulfa (Sulfonamide Allergy Anaphylaxis Verified 01/16/20 20:22 Antibiotics) iv contrast Allergy Hives Uncoded 01/16/20 22:38 Home Medications Medication Instructions Recorded Confirmed Last Taken Type Benzonatate [Tessalon Perles] 100 mg PO Q8HR 01/17/20 01/17/20 Unknown History Latanoprost 0.005% 1 drop OP QPM 01/17/20 01/17/20 Unknown History Mirabegron [Myrbetriq] 25 mg PO DAILY 01/17/20 01/17/20 Unknown History buPROPion [Wellbutrin] 75 mg PO BID 01/17/20 01/17/20 Unknown History dronabinoL [Dronabinol] 2.5 mg PO DAILY 01/17/20 01/17/20 Unknown History Albuterol Mdi (or & Nicu Only) 2 puff IH QID PRN #8.5 gram 01/18/20 Unknown Rx [ProAir HFA Inhaler] Prednisone [predniSONE 10 mg 10 mg PO .TAPER #1 tab.ds.pk 01/18/20 Unknown Rx (6-Day Pack, 21 Tabs)] levoFLOXacin [Levaquin TAB] 500 mg PO QDAY #5 tablet 01/18/20 Unknown Rx Active Meds: Active Medications Acetaminophen (Tylenol) 650 mg PO Q4H PRN PRN Reason: Headache Albuterol/Ipratropium (Duoneb *Not For Prn Use*) 1 ampul IH QIDRT [facility] Last Admin: 01/31/20 13:31 Dose: 1 ampul Documented by: Aspirin (Aspirin) 325 mg PO QDAY [facility] Last Admin: 01/31/20 12:19 Dose: 325 mg Documented by: Heparin Sodium (Porcine) (Heparin) 5,000 unit SUB-Q Q12HR [facility] Last Admin: 01/31/20 12:20 Dose: 5,000 unit Documented by: Levofloxacin/Dextrose (Levaquin 750mg/150ml) 750 mg in 150 mls @ 100 mls/hr IV Q24HR [facility]; Protocol Last Admin: 01/31/20 12:20 Dose: 100 mls/hr Documented by: Methylprednisolone Sodium Succinate (Solu-Medrol) 60 mg IV Q8HR [facility] Last Admin: 01/31/20 05:51 Dose: 60 mg Documented by: Morphine Sulfate (Morphine) 2 mg IV Q4H PRN PRN Reason: Pain, Moderate (4-6) Nitroglycerin (Nitro-Bid 2%) 0.5 inch TP TIDNTG [facility]; Protocol Last Admin: 01/31/20 12:21 Dose: 0.5 inch Documented by: Nitroglycerin (Nitrostat) 0.4 mg SL .Q5MIN PRN PRN Reason: Chest Pain Ondansetron HCl (Zofran) 4 mg IV Q8H PRN PRN Reason: Nausea And Vomiting Review of Systems Constitutional: no fever, no chills, no sweats Ears, nose, mouth and throat: no ear pain, no nose pain, no sinus pressure, no sinus pain Cardiovascular: chest pain, shortness of breath, dyspnea on exertion, no orthopnea, no palpitations, no rapid/irregular heart beat, no edema, no syncope, no lightheadedness, no high blood pressure Respiratory: cough, shortness of breath, dyspnea on exertion Gastrointestinal: no abdominal pain, no nausea, no vomiting, no diarrhea, no constipation, no change in bowel habits Genitourinary Female: no pelvic pain, no flank pain, no dysuria, no urinary frequency, no urgency Musculoskeletal: no neck stiffness, no neck pain, no shooting arm pain, no arm numbness/tingling, no low back pain, no shooting leg pain Integumentary: no rash, no pruritis, no redness, no sores, no wounds Neurological: no head injury, no paralysis, no weakness, no parathesias, no numbness, no tingling, no seizures, no syncope Psychiatric: no anxiety Endocrine: no cold intolerance, no heat intolerance Hematologic/Lymphatic: no easy bruising Allergic/Immunologic: no urticaria Physical Examination Vital Signs Temp Pulse Resp BP Pulse Ox 97.6 F 124 H 18 122/75 100 01/30/20 22:11 01/30/20 22:11 01/30/20 22:11 01/30/20 22:11 01/30/20 22:11 General appearance: cachectic, other (lethargic) HEENT: Positive: PERRL, Normocephaly, Mucus Membranes Moist Neck: Positive: neck supple, trachea midline Cardiac: Positive: Reg Rate and Rhythm, S1/S2 Lungs: Positive: Decreased Breath Sounds Neuro: Positive: Grossly Intact Abdomen: Negative: Tender Skin: Negative: Rash Musculoskeletal: No Pain Extremities: Absent: edema Results 01/30/20 22:50 01/30/20 22:50 Cardiac Enzymes 01/30/20 01/31/20 Range/Units 22:50 05:31 AST 17 (5-40) units/L CK-MB (CK-2) 4.4 H (0.0-4.0) ng/mL Coagulation 01/30/20 Range/Units 22:50 PT 13.0 (12.2-14.9) Sec. INR 0.96 (0.87-1.13) APTT 26.6 (24.2-36.6) Sec. CBC 01/30/20 Range/Units 22:50 WBC 10.4 (4.5-11.0) K/mm3 RBC 3.60 L (3.65-5.03) M/mm3 Hgb 10.7 (10.1-14.3) gm/dl Hct 32.8 (30.3-42.9) % Plt Count 140 (140-440) K/mm3 Lymph # (Auto) 0.6 L (1.2-5.4) K/mm3 [place] # (Auto) 0.7 (0.0-0.8) K/mm3 Eos # (Auto) 0.2 (0.0-0.4) K/mm3 Baso # (Auto) 0.0 (0.0-0.1) K/mm3 Comprehensive Metabolic Panel 01/30/20 Range/Units 22:50 Sodium 138 (137-145) mmol/L Potassium 4.4 (3.6-5.0) mmol/L Chloride 96.9 L (98-107) mmol/L Carbon Dioxide 25 (22-30) mmol/L BUN 13 (7-17) mg/dL Creatinine 0.5 L (0.6-1.2) mg/dL Glucose 173 H (65-100) mg/dL Calcium 10.0 (8.4-10.2) mg/dL AST 17 (5-40) units/L ALT 11 (7-56) units/L Alkaline Phosphatase 92 (35-129) units/L Total Protein 7.4 (6.3-8.2) g/dL Albumin 4.2 (3.9-5) g/dL - Imaging and Cardiology Echo: pending EKG: report reviewed, image reviewed EKG interpretations - Telemetry EKG Rhythm: Sinus Rhythm - EKG Sinus rhythms and dysrhythmias: sinus rhythm Assessment and Plan Chest pain appears pleuritic, AMI r/o. Obtain echo. Recommend pulmonary consultation for management of COPD with acute exacerbation, respiratory failure and lung CA per primary. Will follow. The patient has been seen in conjunction with Dr. Maria Dolores Childress who agrees with the assessment and plan of care. - Patient Problems (1) Chest pain Current Visit: Yes Status: Acute (2) COPD with acute exacerbation Current Visit: Yes Status: Acute (3) Acute respiratory failure with hypoxia Current Visit: Yes Status: Acute (4) Lung cancer Current Visit: Yes Status: Chronic
[2020-01-31 14:24] LABS: Creatine Kinase MB 3.9 ng/mL (0.0-4.0)
--- NOTE | 2020-01-31 16:05 | Event Note ---
Date: 01/31/20 Patient seen and examined 74 year old female who presents with shortness of breath going on for 2 weeks and occurs after chemotherapy sections. Symptom is associated with chest pain and dry cough. Cardiology was consulted and recommended medical management Will consult pulmonary and continue to follow the patient If clinically stable possible DC in the morning
--- NOTE | 2020-01-31 16:28 | Consultation ---
History of Present Illness Consult date: 01/31/20 Reason for consult: dyspnea, cough, COPD, lung mass History of present illness: 74 year old female who presents with shortness of breath going on for 2 weeks and occurs after chemotherapy sections. Symptom is associated with chest pain and dry cough. There is no history of fever, chills or diaphoresis. Patient has history of smoking 1 pack x 20 years. She said she stopped smoking. She drinks Vodka often. Denies drug abuse. 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 and has five children, Allergic to sulfa and citric acid. Patient presently resting on nasal canula 2 litres and O2 saturation running 99%. Patient complaining some shortness of breath and cough. No acute respiratory distress at rest. Chest xray done 01/30/20 reported stable chest with right hilar fullness suggestive for residual tumor and interstitial prominence. According to the patients chart, Patient has history of cancer and receiving chemotherapy. Patient herself not mentioning about her cancer. Past History Past Medical History: cancer (According to the chart patient has history of lung cancer.), COPD, other (as per HPI) Past Surgical History: Other (PORT PLACEMENT) Social history: no significant social history Family history: no significant family history Medications and Allergies Allergies Allergy/AdvReac Type Severity Reaction Status Date / Time citric acid Allergy Anaphylaxis Verified 01/16/20 20:22 Sulfa (Sulfonamide Allergy Anaphylaxis Verified 01/16/20 20:22 Antibiotics) iv contrast Allergy Hives Uncoded 01/16/20 22:38 Home Medications Medication Instructions Recorded Confirmed Last Taken Type Benzonatate [Tessalon Perles] 100 mg PO Q8HR 01/17/20 01/17/20 Unknown History Latanoprost 0.005% 1 drop OP QPM 01/17/20 01/17/20 Unknown History Mirabegron [Myrbetriq] 25 mg PO DAILY 01/17/20 01/17/20 Unknown History buPROPion [Wellbutrin] 75 mg PO BID 01/17/20 01/17/20 Unknown History dronabinoL [Dronabinol] 2.5 mg PO DAILY 01/17/20 01/17/20 Unknown History Albuterol Mdi (or & Nicu Only) 2 puff IH QID PRN #8.5 gram 01/18/20 Unknown Rx [ProAir HFA Inhaler] Prednisone [predniSONE 10 mg 10 mg PO .TAPER #1 tab.ds.pk 01/18/20 Unknown Rx (6-Day Pack, 21 Tabs)] levoFLOXacin [Levaquin TAB] 500 mg PO QDAY #5 tablet 01/18/20 Unknown Rx Active Meds: Active Medications Acetaminophen (Tylenol) 650 mg PO Q4H PRN PRN Reason: Headache Albuterol/Ipratropium (Duoneb *Not For Prn Use*) 1 ampul IH QIDRT [facility] Last Admin: 01/31/20 13:31 Dose: 1 ampul Documented by: Aspirin (Aspirin) 325 mg PO QDAY [facility] Last Admin: 01/31/20 12:19 Dose: 325 mg Documented by: Heparin Sodium (Porcine) (Heparin) 5,000 unit SUB-Q Q12HR [facility] Last Admin: 01/31/20 12:20 Dose: 5,000 unit Documented by: Levofloxacin/Dextrose (Levaquin 750mg/150ml) 750 mg in 150 mls @ 100 mls/hr IV Q24HR [facility]; Protocol Last Admin: 01/31/20 12:20 Dose: 100 mls/hr Documented by: Methylprednisolone Sodium Succinate (Solu-Medrol) 60 mg IV Q8HR [facility] Last Admin: 01/31/20 14:11 Dose: 60 mg Documented by: Morphine Sulfate (Morphine) 2 mg IV Q4H PRN PRN Reason: Pain, Moderate (4-6) Nitroglycerin (Nitro-Bid 2%) 0.5 inch TP TIDNTG [facility]; Protocol Last Admin: 01/31/20 12:21 Dose: 0.5 inch Documented by: Nitroglycerin (Nitrostat) 0.4 mg SL .Q5MIN PRN PRN Reason: Chest Pain Ondansetron HCl (Zofran) 4 mg IV Q8H PRN PRN Reason: Nausea And Vomiting Review of Systems All systems: negative Physical Examination Vital signs: Vital Signs Temp Pulse Resp BP Pulse Ox 97.6 F 124 H 18 122/75 100 01/30/20 22:11 01/30/20 22:11 01/30/20 22:11 01/30/20 22:11 01/30/20 22:11 General appearance: no acute distress, alert Eyes: non-icteric ENT: oropharynx moist Neck: supple, no JVD Ascultation: Bilateral: diminished breath sounds, other (Prolonged expiratory phase.) Cardiovascular: regular rate and rhythm Gastrointestinal: normoactive bowel sounds, soft, non-tender Integumentary: normal Extremities: no cyanosis, no edema Musculoskeletal: no deformities Gait: poor gait normal mental status, non-focal exam, pupils equal and round anxious Results - Laboratory Findings CBC and BMP: 01/30/20 22:50 01/30/20 22:50 PT/INR, D-dimer PT 13.0 Sec. (12.2-14.9) 01/30/20 22:50 INR 0.96 (0.87-1.13) 01/30/20 22:50 D-Dimer 3243.14 ng/mlDDU (0-234) H 01/30/20 22:50 Abnormal lab findings: Abnormal Labs 01/30/20 01/30/20 01/30/20 22:50 22:50 22:50 RBC 3.60 L RDW 16.9 H Lymph % (Auto) 5.4 L Lymph # (Auto) 0.6 L Seg Neutrophils % 85.8 H Seg Neutrophils # 9.0 H D-Dimer 3243.14 H Chloride 96.9 L Creatinine 0.5 L Glucose 173 H CK-MB (CK-2) CK-MB (CK-2) Rel Index 01/31/20 01/31/20 05:31 13:38 RBC RDW Lymph % (Auto) Lymph # (Auto) Seg Neutrophils % Seg Neutrophils # D-Dimer Chloride Creatinine Glucose CK-MB (CK-2) 4.4 H CK-MB (CK-2) Rel Index 10.2 H 10.0 H - Diagnostic Findings Chest x-ray: report reviewed, image reviewed Additional studies: CHEST 1 VIEW 01/30/2020 10:48 PM INDICATION / CLINICAL INFORMATION: sob after chemo. COMPARISON: 01/30/2020 FINDINGS: SUPPORT DEVICES: Left internal jugular Port-A-Cath again projects over SVC. HEART / MEDIASTINUM: Right hilar fullness/mass again noted. LUNGS / PLEURA: Chronic interstitial disease, unchanged. No acute infiltrate. No pneumothorax. ADDITIONAL FINDINGS: No significant additional findings. IMPRESSION: 1. Stable chest with right hilar fullness suggestive for residual tumor and interstitial prominence. NUCLEAR MEDICINE PERFUSION LUNG SCAN 01/30/20 INDICATION: Shortness of breath. TECHNIQUE: 5.5 mCi of Tc-99m MAA were given by IV. COMPARISON: Chest radiograph dated 01/30/2020., Perfusion scan 01/16/2020 FINDINGS: PERFUSION: No significant perfusion defects. No interval change ADDITIONAL FINDINGS: None. IMPRESSION: 1. Low probability for pulmonary embolism. Assessment and Plan 74 year old female who presents with shortness of breath going on for 2 weeks and occurs after chemotherapy sections. Symptom is associated with chest pain and dry cough. There is no history of fever, chills or diaphoresis. Patient has history of smoking 1 pack x 20 years. She said she stopped smoking. She drinks Vodka often. Denies drug abuse. 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 Patient presently resting on nasal canula 2 litres and O2 saturation running 99%. Patient complaining some shortness of breath and cough. No acute respiratory distress at rest. Chest xray done 01/30/20 reported stable chest with right hilar fullness suggestive for residual tumor and interstitial prominence. - Patient Problems (1) Acute respiratory failure with hypoxia Current Visit: Yes Status: Acute Plan to address problem: O2 2 litres via nasal canula. Albuterol/atrovent aerosol treatments q 6 hours. Continue I/V solumedrol Continue levaquin Continue S/C Heparin. Abgs on room air. (2) COPD with acute exacerbation Current Visit: Yes Status: Acute Plan to address problem: O2 2 litres via nasal canula. Albuterol/atrovent aerosol treatments q 6 hours. Continue I/V solumedrol Continue levaquin Continue S/C Heparin. ABGs on room air. PFTs as out patient. (3) Lung cancer Current Visit: Yes Status: Chronic Plan to address problem: Since she is receiving chemotherapy, recommend oncology consultation and follow up.
[2020-02-01] MEDS: NITROGLYCERIN 2% OINT 1 GM TP SCH ×3 (06:25→17:10)
[2020-02-01] MEDS: methylPREDNISolone Sod Succinate 40 MG/1 ML INJ IV SCH ×3 (06:26→22:31)
[2020-02-01] MEDS: IPRATROPIUM/ALBUTEROL SULFATE 3 ML AMPUL.NEB IH SCH ×4 (08:00→21:37)
[2020-02-01] MEDS: HEPARIN 5,000 UNIT/1 ML VIAL SUB-Q SCH ×2 (09:22→22:31)
[2020-02-01] MEDS: ASPIRIN 325 MG TAB PO SCH (09:22)
--- NOTE | 2020-02-01 12:19 | Progress Note ---
Assessment and Plan Acute hypoxemic respiratory failure COPD with acute exacerbation Lung cancer Chest Pain - continue to wean supplemental oxygen to keep O2 sats > 90% - continue Bronchodilators (JEANETH & LABA) with pulm hygiene per RT - continue systemic steroids with slow taper - add inhaled corticosteroids - complete 5 days of empiric CAP coverage with Levaquin - avoid nephrotoxins, renally dose all medications - continue mobility protocols to prevent pressure ulcers - PT/OT as tolerated - accuchecks with glycemic control per SSI for target blood glucose < 180 mg/dL - ACS w/up per cardiology - continued tobacco abstinence strongly counseled at the bedside - home oxygen evaluation at discharge - GI & VTE prophylaxis - Flu & pneumovax per protocol - Pulmonary out patient follow up for PFTs and optimization of respiratory status - continue other care per attending / other consultants - prn analgesia per pain score ... re-evaluate in am & prn Subjective Date of service: 02/01/20 Principal diagnosis: Acute hypoxemic respiratory failure; AE-COPD; Lung cancer; Chest Pain Interval history: Patient is seen today for: Acute hypoxemic respiratory failure; COPD with acute exacerbation; Lung cancer; Chest Pain Seen and examined at bedside; 24hour events reviewed; nursing and respiratory care staff consulted; no adverse overnight events reported to me; resting peacefully in bed; feels a little better; remains on supplemental oxygen at 2-3 LNC; no hemoptysis; denies acute chest pains or palpitations; No N/V/F/C Objective Vital Signs - 12hr 02/01/20 02/01/20 02/01/20 04:25 08:00 08:02 Temperature 97.7 F Pulse Rate 98 H Pulse Rate [ 100 H Anterior] Respiratory 20 Rate Respiratory 16 Rate [Anterior] Blood Pressure 112/76 O2 Sat by Pulse 96 96 Oximetry 02/01/20 02/01/20 08:17 08:21 Temperature 97.6 F Pulse Rate 95 H Pulse Rate [ Anterior] Respiratory 22 Rate Respiratory Rate [Anterior] Blood Pressure 115/77 O2 Sat by Pulse 99 96 Oximetry Constitutional: appears uncomfortable, other (elderly thin female with mildly increased resppiratory effort at rest) Eyes: non-icteric ENT: oropharynx moist Neck: supple, no JVD Ascultation: Bilateral: diminished breath sounds, other (Prolonged expiratory phase.) Percussion: Bilateral: not dull Cardiovascular: regular rate and rhythm Gastrointestinal: normoactive bowel sounds, soft, non-tender, non-distended Integumentary: normal Extremities: no cyanosis, no edema, pulses normal, no ischemia or petechiae Neurologic: normal mental status, non-focal exam, pupils equal and round, motor strength normal and Psychiatric: anxious CBC and BMP: 01/30/20 22:50 01/30/20 22:50 ABG, PT/INR, D-dimer: PT/INR, D-dimer PT 13.0 Sec. (12.2-14.9) 01/30/20 22:50 INR 0.96 (0.87-1.13) 01/30/20 22:50 D-Dimer 3243.14 ng/mlDDU (0-234) H 01/30/20 22:50 Abnormal lab findings: Abnormal Labs 01/30/20 01/30/20 01/30/20 22:50 22:50 22:50 RBC 3.60 L RDW 16.9 H Lymph % (Auto) 5.4 L Lymph # (Auto) 0.6 L Seg Neutrophils % 85.8 H Seg Neutrophils # 9.0 H D-Dimer 3243.14 H Chloride 96.9 L Creatinine 0.5 L Glucose 173 H CK-MB (CK-2) CK-MB (CK-2) Rel Index 01/31/20 01/31/20 05:31 13:38 RBC RDW Lymph % (Auto) Lymph # (Auto) Seg Neutrophils % Seg Neutrophils # D-Dimer Chloride Creatinine Glucose CK-MB (CK-2) 4.4 H CK-MB (CK-2) Rel Index 10.2 H 10.0 H Chest x-ray: image reviewed (no acute process) Allied health notes reviewed: nursing
--- NOTE | 2020-02-01 14:15 | Progress Note ---
Assessment and Plan tte reviewed - EF 50-55%, impaired relaxation. Chest pain appears pleuritic, AMI r/o. Currently stable cardiac status. Nothing further to add from cardiac perspective at this time. Will follow on as needed basis. The patient has been seen in conjunction with Dr. Maria Dolores Childress who agrees with the assessment and plan of care. - Patient Problems (1) Chest pain Current Visit: Yes Status: Resolved (2) COPD with acute exacerbation Current Visit: Yes Status: Acute (3) Acute respiratory failure with hypoxia Current Visit: Yes Status: Acute (4) Lung cancer Current Visit: Yes Status: Chronic Subjective Date of service: 02/01/20 Principal diagnosis: Acute hypoxemic respiratory failure; AE-COPD; Lung cancer; Chest Pain Interval history: pt resting in bed, lethargic, no apparent distress. in SR/ST on tele HR 100s. Objective Last Vital Signs Temp 97.6 F 02/01/20 08:17 Pulse 95 H 02/01/20 08:17 Resp 22 02/01/20 08:17 BP 115/77 02/01/20 08:17 Pulse Ox 96 02/01/20 08:21 - Physical Examination General: Cachectic, Other (lethargic) HEENT: Positive: PERRL, Normocephaly, Mucus Membranes Moist Neck: Positive: neck supple, trachea midline Cardiac: Positive: Reg Rate and Rhythm, S1/S2 Lungs: Positive: Decreased Breath Sounds Neuro: Positive: Grossly Intact Abdomen: Negative: Tender Skin: Negative: Rash Musculoskeletal: No Pain Extremities: Absent: edema - Labs and Meds Cardiac Enzymes 01/31/20 Range/Units 13:38 CK-MB (CK-2) 3.9 (0.0-4.0) ng/mL - Imaging and Cardiology EKG: report reviewed, image reviewed Echo: pending - EKG Sinus rhythms and dysrhythmias: sinus rhythm
--- NOTE | 2020-02-01 19:34 | Progress Note ---
Assessment and Plan - Patient Problems (1) Acute respiratory failure with hypoxia Current Visit: Yes Status: Acute Plan to address problem: Patient very hypoxic and severe respiratory distress Continue antibiotics and Solu-Medrol and duo nebs (2) COPD exacerbation Current Visit: Yes Status: Acute Plan to address problem: Same as above (3) Lung cancer Current Visit: Yes Status: Chronic Plan to address problem: In remission (4) Chest pain Current Visit: Yes Status: Chronic Qualifiers: Ischemic chest pain type: unspecified angina pectoris type Plan to address problem: Nonspecific (5) DVT prophylaxis Current Visit: Yes Status: Acute Plan to address problem: On SCDs and GI prophylaxis Subjective Date of service: 02/01/20 Principal diagnosis: Acute hypoxemic respiratory failure; AE-COPD; Lung cancer; Chest Pain Interval history: 74 year old female who presents with shortness of breath going on for 2 weeks and occurs after chemotherapy sections. Symptom is associated with chest pain and dry cough. There is no history of fever, chills or diaphoresis. Still very short of breath and tachypneic Objective - Constitutional Vitals: Vital Signs - 12hr 02/01/20 02/01/20 02/01/20 08:00 08:02 08:17 Temperature 97.6 F Pulse Rate 95 H Pulse Rate [ 100 H Anterior] Respiratory 22 Rate Respiratory 16 Rate [Anterior] Blood Pressure 115/77 O2 Sat by Pulse 96 99 Oximetry 02/01/20 02/01/20 02/01/20 08:21 10:00 12:43 Temperature 98.6 F Pulse Rate 95 H 106 H Pulse Rate [ Anterior] Respiratory 18 20 Rate Respiratory Rate [Anterior] Blood Pressure 106/69 O2 Sat by Pulse 96 98 98 Oximetry 02/01/20 16:55 Temperature 98.3 F Pulse Rate 105 H Pulse Rate [ Anterior] Respiratory 22 Rate Respiratory Rate [Anterior] Blood Pressure 113/70 O2 Sat by Pulse 99 Oximetry General appearance: Present: severe distress, well-nourished - EENT Eyes: PERRL, EOM intact ENT: hearing intact, clear oral mucosa Ears: bilateral: normal - Neck Neck: supple, normal ROM - Respiratory Respiratory effort: normal Respiratory: bilateral: CTA, rhonchi, wheezing - Breasts Breasts: normal - Cardiovascular Rhythm: regular Heart Sounds: Present: S1 & S2. Absent: gallop, rub Extremities: pulses intact, No edema, normal color, Full ROM - Gastrointestinal General gastrointestinal: Present: soft, non-tender, non-distended, normal bowel sounds - Genitourinary Female genitourinary: normal - Integumentary Integumentary: clear, warm, dry - Musculoskeletal Musculoskeletal: 1, strength equal bilaterally - Neurologic Neurologic: moves all extremities - Psychiatric Psychiatric: memory intact, appropriate mood/affect, intact judgment & insight - Labs CBC & Chem 7: 02/03/20 07:42 02/03/20 07:42 HEART Score - HEART Score Age: > 65 Risk factors: 1-2 risk factors Troponin: Troponin T < 0.010 ng/mL (0.00-0.029) 01/31/20 13:38 Troponin: < normal limit - Critical Actions Critical Actions: 0-3 pts:0.9-1.7%risk of adverse cardiac event.Candidate for discharge
[2020-02-01] MEDS ORDERED: MAGNESIUM CITRATE 300 ML ORAL LIQD PO ONE (21:28)
[2020-02-01] MEDS: LORazepam 1 MG TAB PO PRN (22:32)
[2020-02-02] MEDS: NITROGLYCERIN 2% OINT 1 GM TP SCH ×3 (05:23→18:38)
[2020-02-02] MEDS: methylPREDNISolone Sod Succinate 40 MG/1 ML INJ IV SCH ×2 (05:24→13:23)
[2020-02-02] MEDS: IPRATROPIUM/ALBUTEROL SULFATE 3 ML AMPUL.NEB IH SCH ×2 (08:11→21:09)
[2020-02-02] MEDS: levoFLOXacin 750 MG TAB PO SCH (09:53)
[2020-02-02] MEDS: ASPIRIN 325 MG TAB PO SCH (09:53)
[2020-02-02] MEDS: HEPARIN 5,000 UNIT/1 ML VIAL SUB-Q SCH ×2 (09:54→21:23)
[2020-02-02] MEDS ORDERED: ALBUTEROL 2.5 MG/3 ML NEBU IH PRN (13:00)
--- NOTE | 2020-02-02 13:00 | Progress Note ---
Assessment and Plan Acute hypoxemic respiratory failure COPD with acute exacerbation Lung cancer Chest Pain - taper Solumedrol to 40 mg IV q12h - add Brovana - reduce Duonebs to bid scheduled - albuterol prn - continue care as below otherwise; - continue to wean supplemental oxygen to keep O2 sats > 90% - continue Bronchodilators (JEANETH & LABA) with pulm hygiene per RT - continue systemic steroids with slow taper - add inhaled corticosteroids - complete 5 days of empiric CAP coverage with Levaquin - avoid nephrotoxins, renally dose all medications - continue mobility protocols to prevent pressure ulcers - PT/OT as tolerated - accuchecks with glycemic control per SSI for target blood glucose < 180 mg/dL - ACS w/up per cardiology - continued tobacco abstinence strongly counseled at the bedside - home oxygen evaluation at discharge - GI & VTE prophylaxis - Flu & pneumovax per protocol - Pulmonary out patient follow up for PFTs and optimization of respiratory status - continue other care per attending / other consultants - prn analgesia per pain score ... re-evaluate in am & prn Subjective Date of service: 02/02/20 Principal diagnosis: Acute hypoxemic respiratory failure; AE-COPD; Lung cancer; Chest Pain Interval history: Patient is seen today for: Acute hypoxemic respiratory failure; COPD with acute exacerbation; Lung cancer; Chest Pain Seen and examined at bedside; 24hour events reviewed; nursing and respiratory care staff consulted; no adverse overnight events reported to me; resting peacefully in bed; Objective Vital Signs - 12hr 02/02/20 02/02/20 02/02/20 01:07 03:36 04:36 Temperature 98.0 F Pulse Rate 102 H 111 H 97 H Pulse Rate [ Anterior] Respiratory 22 Rate Respiratory Rate [Anterior] Blood Pressure 102/73 O2 Sat by Pulse 100 Oximetry 02/02/20 02/02/20 02/02/20 08:00 08:12 08:50 Temperature 98.1 F Pulse Rate 100 H Pulse Rate [ 95 H Anterior] Respiratory 20 Rate Respiratory 18 Rate [Anterior] Blood Pressure 114/72 O2 Sat by Pulse 100 100 Oximetry 02/02/20 09:30 Temperature Pulse Rate Pulse Rate [ Anterior] Respiratory Rate Respiratory Rate [Anterior] Blood Pressure O2 Sat by Pulse 96 Oximetry Constitutional: appears uncomfortable, other (elderly thin female with mildly increased resppiratory effort at rest) Eyes: non-icteric ENT: oropharynx moist Neck: supple, no JVD Ascultation: Bilateral: diminished breath sounds, other (Prolonged expiratory phase.) Percussion: Bilateral: not dull Cardiovascular: regular rate and rhythm Gastrointestinal: normoactive bowel sounds, soft, non-tender, non-distended Integumentary: normal Extremities: no cyanosis, no edema, pulses normal, no ischemia or petechiae Neurologic: normal mental status, non-focal exam, pupils equal and round, motor strength normal and Psychiatric: anxious CBC and BMP: 01/30/20 22:50 01/30/20 22:50 ABG, PT/INR, D-dimer: PT/INR, D-dimer PT 13.0 Sec. (12.2-14.9) 01/30/20 22:50 INR 0.96 (0.87-1.13) 01/30/20 22:50 D-Dimer 3243.14 ng/mlDDU (0-234) H 01/30/20 22:50 Abnormal lab findings: Abnormal Labs 01/30/20 01/30/20 01/30/20 22:50 22:50 22:50 RBC 3.60 L RDW 16.9 H Lymph % (Auto) 5.4 L Lymph # (Auto) 0.6 L Seg Neutrophils % 85.8 H Seg Neutrophils # 9.0 H D-Dimer 3243.14 H Chloride 96.9 L Creatinine 0.5 L Glucose 173 H POC Glucose CK-MB (CK-2) CK-MB (CK-2) Rel Index 01/31/20 01/31/20 02/02/20 05:31 13:38 09:07 RBC RDW Lymph % (Auto) Lymph # (Auto) Seg Neutrophils % Seg Neutrophils # D-Dimer Chloride Creatinine Glucose POC Glucose 152 H CK-MB (CK-2) 4.4 H CK-MB (CK-2) Rel Index 10.2 H 10.0 H Allied health notes reviewed: nursing
[2020-02-02] MEDS ORDERED: ARFORMOTEROL 15 MCG/2 ML NEBU IH SCH (13:15)
[2020-02-02] MEDS ORDERED: IPRATROPIUM/ALBUTEROL SULFATE 3 ML AMPUL.NEB IH SCH (14:00)
[2020-02-02] MEDS: ARFORMOTEROL 15 MCG/2 ML NEBU IH SCH (21:09)
--- NOTE | 2020-02-02 21:21 | Progress Note ---
Assessment and Plan - Patient Problems (1) Acute respiratory failure with hypoxia Current Visit: Yes Status: Acute Plan to address problem: Patient very hypoxic and severe respiratory distress Continue antibiotics and Solu-Medrol and duo nebs (2) COPD exacerbation Current Visit: Yes Status: Acute Plan to address problem: Same as above (3) Lung cancer Current Visit: Yes Status: Chronic Plan to address problem: In remission (4) Chest pain Current Visit: Yes Status: Chronic Qualifiers: Ischemic chest pain type: unspecified angina pectoris type Plan to address problem: Nonspecific Subjective Date of service: 02/02/20 Principal diagnosis: Acute hypoxemic respiratory failure; AE-COPD; Lung cancer; Chest Pain Interval history: 74 year old female who presents with shortness of breath going on for 2 weeks and occurs after chemotherapy sections. Symptom is associated with chest pain and dry cough. There is no history of fever, chills or diaphoresis. Still very short of breath and tachypneic Objective - Constitutional Vitals: Vital Signs - 12hr 02/02/20 02/02/20 02/02/20 09:30 16:47 19:49 Temperature 97.6 F 98.2 F Pulse Rate 92 H 98 H Respiratory 20 18 Rate Blood Pressure 111/74 144/82 O2 Sat by Pulse 96 98 96 Oximetry General appearance: Present: severe distress, well-nourished - EENT Eyes: PERRL, EOM intact ENT: hearing intact, clear oral mucosa Ears: bilateral: normal - Neck Neck: supple, normal ROM - Respiratory Respiratory effort: normal Respiratory: bilateral: CTA, diminished, rhonchi, wheezing - Breasts Breasts: normal - Cardiovascular Rhythm: regular Heart Sounds: Present: S1 & S2. Absent: gallop, rub Extremities: pulses intact, No edema, normal color, Full ROM - Gastrointestinal General gastrointestinal: Present: soft, non-tender, non-distended, normal bowel sounds - Genitourinary Female genitourinary: normal - Integumentary Integumentary: clear, warm, dry - Musculoskeletal Musculoskeletal: 1, strength equal bilaterally - Neurologic Neurologic: moves all extremities - Psychiatric Psychiatric: memory intact, appropriate mood/affect, intact judgment & insight - Labs CBC & Chem 7: 02/03/20 07:42 02/03/20 07:42 Labs: Abnormal lab results 02/02/20 Range/Units 09:07 POC Glucose 152 H (70-105) HEART Score - HEART Score Age: > 65 Risk factors: 1-2 risk factors Troponin: Troponin T < 0.010 ng/mL (0.00-0.029) 01/31/20 13:38 Troponin: < normal limit - Critical Actions Critical Actions: 0-3 pts:0.9-1.7%risk of adverse cardiac event.Candidate for discharge
[2020-02-03] MEDS: methylPREDNISolone Sod Succinate 40 MG/1 ML INJ IV SCH ×2 (01:57→15:05)
[2020-02-03] MEDS: NITROGLYCERIN 2% OINT 1 GM TP SCH ×3 (06:03→17:46)
[2020-02-03 08:26] LABS: Hematocrit 29.1 % (30.3-42.9); Hemoglobin 9.3 gm/dl (10.1-14.3); Mean Corpuscular HGB Conc 32 % (30-34); Mean Corpuscular Volume 91 fl (79-97); Platelet Count 204 K/mm3 (140-440); Red Blood Count 3.21 M/mm3 (3.65-5.03); Red Cell Distribution Width 17.4 % (13.2-15.2)
[2020-02-03 08:37] LABS: Alanine Aminotransferase 25 units/L (7-56); Albumin 3.5 g/dL (3.9-5); Blood Urea Nitrogen 15 mg/dL (7-17); Calcium 10.4 mg/dL (8.4-10.2); Hemolysis Index 2
[2020-02-03 08:42] LABS: BUN/Creatinine Ratio 50
[2020-02-03] MEDS: ARFORMOTEROL 15 MCG/2 ML NEBU IH SCH ×2 (08:47→22:03)
[2020-02-03] MEDS: IPRATROPIUM/ALBUTEROL SULFATE 3 ML AMPUL.NEB IH SCH ×3 (08:48→22:03)
[2020-02-03] MEDS: levoFLOXacin 750 MG TAB PO SCH (10:29)
[2020-02-03] MEDS: HEPARIN 5,000 UNIT/1 ML VIAL SUB-Q SCH ×2 (10:29→21:02)
[2020-02-03] MEDS: ASPIRIN 325 MG TAB PO SCH (10:29)
--- NOTE | 2020-02-03 12:08 | Progress Note ---
Assessment and Plan Patient alert, awake and resting on nasal canula. Patient is on 2 litres o2. O2 saturation 100%. Complaining some cough. No acute respiratory distress. Patient afebrile. No leukocytosis. - Patient Problems (1) Acute respiratory failure with hypoxia Current Visit: Yes Status: Acute Plan to address problem: O2 2 litres via nasal canula. Albuterol/atrovent aerosol treatments q 6 hours. Continue I/V solumedrol Continue levaquin Continue S/C Heparin. Abgs on room air. (2) COPD with acute exacerbation Current Visit: Yes Status: Acute Plan to address problem: O2 2 litres via nasal canula. Albuterol/atrovent aerosol treatments q 6 hours. Continue I/V solumedrol Continue levaquin Continue S/C Heparin. ABGs on room air. PFTs as out patient. (3) Lung cancer Current Visit: Yes Status: Chronic Plan to address problem: Since she is receiving chemotherapy, recommend oncology consultation and follow up. Subjective Date of service: 02/03/20 Principal diagnosis: Acute hypoxemic respiratory failure; AE-COPD; Lung cancer; Chest Pain Interval history: Patient alert, awake and resting on nasal canula. Patient is on 2 litres o2. O2 saturation 100%. Complaining some cough. No acute respiratory distress. Patient afebrile. No leukocytosis. Objective Vital Signs - 12hr 02/03/20 02/03/20 02/03/20 00:24 04:43 07:52 Temperature 97.9 F 98 F 98.1 F Pulse Rate 98 H 100 H 90 Pulse Rate [ Anterior] Respiratory 18 18 Rate Respiratory Rate [Anterior] Blood Pressure 103/56 128/73 Blood Pressure 121/68 [Right] O2 Sat by Pulse 98 99 Oximetry 02/03/20 02/03/20 08:48 10:00 Temperature Pulse Rate Pulse Rate [ 88 88 Anterior] Respiratory Rate Respiratory 16 16 Rate [Anterior] Blood Pressure Blood Pressure [Right] O2 Sat by Pulse 100 100 Oximetry Constitutional: no acute distress, alert Eyes: non-icteric ENT: oropharynx moist Neck: supple, no JVD Ascultation: Bilateral: diminished breath sounds, rhonchi, other (Prolonged expiratory phase.) Percussion: Bilateral: not dull Cardiovascular: regular rate and rhythm Gastrointestinal: normoactive bowel sounds, soft, non-tender, non-distended Integumentary: normal Extremities: no cyanosis, no edema, pulses normal, no ischemia or petechiae Neurologic: normal mental status, non-focal exam, pupils equal and round, motor strength normal and Psychiatric: anxious CBC and BMP: 02/03/20 07:42 02/03/20 07:42 ABG, PT/INR, D-dimer: PT/INR, D-dimer PT 13.0 Sec. (12.2-14.9) 01/30/20 22:50 INR 0.96 (0.87-1.13) 01/30/20 22:50 D-Dimer 3243.14 ng/mlDDU (0-234) H 01/30/20 22:50 Abnormal lab findings: Abnormal Labs 01/30/20 01/30/20 01/30/20 22:50 22:50 22:50 RBC 3.60 L Hgb Hct RDW 16.9 H Lymph % (Auto) 5.4 L Lymph # (Auto) 0.6 L Seg Neutrophils % 85.8 H Seg Neutrophils # 9.0 H D-Dimer 3243.14 H Chloride 96.9 L Carbon Dioxide Creatinine 0.5 L Glucose 173 H POC Glucose Calcium CK-MB (CK-2) CK-MB (CK-2) Rel Index Albumin 01/31/20 01/31/20 02/02/20 05:31 13:38 09:07 RBC Hgb Hct RDW Lymph % (Auto) Lymph # (Auto) Seg Neutrophils % Seg Neutrophils # D-Dimer Chloride Carbon Dioxide Creatinine Glucose POC Glucose 152 H Calcium CK-MB (CK-2) 4.4 H CK-MB (CK-2) Rel Index 10.2 H 10.0 H Albumin 02/03/20 02/03/20 07:42 07:42 RBC 3.21 L Hgb 9.3 L Hct 29.1 L RDW 17.4 H Lymph % (Auto) Lymph # (Auto) Seg Neutrophils % Seg Neutrophils # D-Dimer Chloride 97.4 L Carbon Dioxide 33 H D Creatinine 0.3 L Glucose 133 H POC Glucose Calcium 10.4 H CK-MB (CK-2) CK-MB (CK-2) Rel Index Albumin 3.5 L Allied health notes reviewed: nursing
[2020-02-03 12:24] LABS: Anisocytosis 1+; Basophils % (Manual) 0 % (0.0-1.8); Eosinophils % (Manual) 0 % (0.0-4.3); Monocytes % (Manual) 0 % (0.0-7.3); Platelet Estimate Consistent w Auto; Total Cells Counted 100
[2020-02-03] MEDS: LORazepam 1 MG TAB PO PRN (21:07)
[2020-02-04] MEDS: methylPREDNISolone Sod Succinate 40 MG/1 ML INJ IV SCH ×2 (01:38→14:56)
[2020-02-04] MEDS: NITROGLYCERIN 2% OINT 1 GM TP SCH ×3 (05:43→17:54)
[2020-02-04] MEDS: ARFORMOTEROL 15 MCG/2 ML NEBU IH SCH (08:50)
[2020-02-04] MEDS: IPRATROPIUM/ALBUTEROL SULFATE 3 ML AMPUL.NEB IH SCH (08:50)
[2020-02-04 09:18] VITALS: BP 115/70
--- NOTE | 2020-02-04 09:37 | XRay Report ---
CHEST 1 VIEW INDICATION / CLINICAL INFORMATION: COPD. COMPARISON: 01/30/2020 FINDINGS: SUPPORT DEVICES: Stable, satisfactory device positioning. HEART / MEDIASTINUM: Stable. LUNGS / PLEURA: Chronic interstitial disease throughout bilateral lung olmos is similar to prior exa m. No evidence of confluent infiltrate. No pneumothorax. ADDITIONAL FINDINGS: No significant additional findings. IMPRESSION: 1. No significant interval change since prior exam. Signer Name: Bert Garza MD Signed: 02/04/2020 9:32 AM Workstation Name: [facility] [employer]
[2020-02-04] MEDS: ASPIRIN 325 MG TAB PO SCH (10:15)
[2020-02-04] MEDS: HEPARIN 5,000 UNIT/1 ML VIAL SUB-Q SCH (10:16)
[2020-02-04] MEDS: levoFLOXacin 750 MG TAB PO SCH (10:16)
[2020-02-04 11:28] LABS: ABG Base Excess 9.4 mmol/L (-2.0-3.0); ABG HCO3 35.1 mmol/L (20.0-26.0); ABG Methemoglobin 0.6 % (0.0-1.5); ABG PCO2 55.1 mm Hg; ABG PH 7.423 pH Units (7.350-7.450); ABG PO2 88.1 mm Hg (80.0-90.0)
--- NOTE | 2020-02-04 19:25 | Progress Note ---
Assessment and Plan - Patient Problems (1) Acute respiratory failure with hypoxia Current Visit: Yes Status: Acute Plan to address problem: Patient very hypoxic and severe respiratory distress Continue antibiotics and Solu-Medrol and duo nebs (2) COPD exacerbation Current Visit: Yes Status: Acute Plan to address problem: Same as above (3) Lung cancer Current Visit: Yes Status: Chronic Plan to address problem: In remission (4) Chest pain Current Visit: Yes Status: Chronic Qualifiers: Ischemic chest pain type: unspecified angina pectoris type Plan to address problem: Nonspecific (5) DVT prophylaxis Current Visit: Yes Status: Acute Plan to address problem: On SCDs and GI prophylaxis Subjective Date of service: 02/03/20 Principal diagnosis: Acute hypoxemic respiratory failure; AE-COPD; Lung cancer; Chest Pain Interval history: 74 year old female who presents with shortness of breath going on for 2 weeks and occurs after chemotherapy sections. Symptom is associated with chest pain and dry cough. There is no history of fever, chills or diaphoresis. Still very short of breath and tachypneic Objective - Constitutional Vitals: Vital Signs - 12hr 02/04/20 02/04/20 02/04/20 07:52 08:50 10:00 Temperature 97.9 F Pulse Rate 99 H Pulse Rate [ 104 H 104 H Anterior] Respiratory 18 18 Rate Respiratory 16 16 Rate [Anterior] Blood Pressure 115/70 O2 Sat by Pulse 98 100 Oximetry 02/04/20 12:03 Temperature Pulse Rate 91 H Pulse Rate [ Anterior] Respiratory Rate Respiratory Rate [Anterior] Blood Pressure O2 Sat by Pulse Oximetry General appearance: Present: no acute distress, well-nourished - EENT Eyes: PERRL, EOM intact ENT: hearing intact, clear oral mucosa Ears: bilateral: normal - Neck Neck: supple, normal ROM - Respiratory Respiratory effort: normal Respiratory: bilateral: CTA, rhonchi, wheezing - Breasts Breasts: normal - Cardiovascular Heart rate: 768 Rhythm: regular Heart Sounds: Present: S1 & S2. Absent: gallop, rub Extremities: pulses intact, No edema, normal color, Full ROM - Gastrointestinal General gastrointestinal: Present: soft, non-tender, non-distended, normal bowel sounds - Genitourinary Female genitourinary: normal - Integumentary Integumentary: clear, warm, dry - Musculoskeletal Musculoskeletal: 1, strength equal bilaterally - Neurologic Neurologic: moves all extremities - Psychiatric Psychiatric: memory intact, appropriate mood/affect, intact judgment & insight - Labs CBC & Chem 7: 02/03/20 07:42 02/03/20 07:42 Labs: Abnormal lab results 02/04/20 Range/Units 11:15 ABG HCO3 35.1 H (20.0-26.0) mmol/L ABG Base Excess 9.4 H (-2.0-3.0) mmol/L ABG Hemoglobin 9.4 L (12.0-16.0) gm/dl HEART Score - HEART Score Age: > 65 Risk factors: 1-2 risk factors Troponin: Troponin T < 0.010 ng/mL (0.00-0.029) 01/31/20 13:38 Troponin: < normal limit - Critical Actions Critical Actions: 0-3 pts:0.9-1.7%risk of adverse cardiac event.Candidate for discharge
--- NOTE | 2020-02-04 19:30 | Discharge Summary ---
Providers - Providers Date of Admission: 02/01/20 10:00 Date of discharge: 02/04/20 Attending physician: KHUSHI OCONNELL 01/31/20 06:00 Consult to Physician [CONS] Routine Comment: Consulting Provider: PRESTON ROWLAND Physician Instructions: Reason For Exam: CHEST PAIN 01/31/20 16:03 Consult to Physician [CONS] Routine Comment: Consulting Provider: INGRID MARIE Physician Instructions: Reason For Exam: copd with resp failure Primary care physician: CONTROL VALVE TECHNICIAN Hospitalization Condition: Fair Hospital course: Subjective Date of service: 02/04/20 Principal diagnosis: Acute hypoxemic respiratory failure; AE-COPD; Lung cancer; Chest Pain Interval history: 74 year old female who presents with shortness of breath going on for 2 weeks and occurs after chemotherapy sections. Symptom is associated with chest pain and dry cough. There is no history of fever, chills or diaphoresis. Still wheezing but better than yesterday Can be managed as an outpatient follow-up (1) Acute respiratory failure with hypoxia Current Visit: Yes Status: Acute Plan to address problem: Patient very hypoxic and severe respiratory distress Continue antibiotics and Solu-Medrol and duo nebs (2) COPD exacerbation Current Visit: Yes Status: Acute Plan to address problem: Patient to be discharged on oral antibiotics Dosepak and duo nebs. (3) Lung cancer Current Visit: Yes Status: Chronic Plan to address problem: In remission (4) Chest pain Current Visit: Yes Status: Chronic Qualifiers: Ischemic chest pain type: unspecified angina pectoris type Plan to address problem: Nonspecific Disposition: DC-01 TO HOME OR SELFCARE Time spent for discharge: 35 minutes - Discharge Diagnoses (1) Acute respiratory failure with hypoxia Status: Acute (2) COPD exacerbation Status: Acute (3) Lung cancer Status: Chronic (4) Chest pain Status: Chronic Qualifiers: Ischemic chest pain type: unspecified angina pectoris type (5) DVT prophylaxis Status: Acute Core Measure Documentation - Palliative Care Palliative Care/ Comfort Measures: Not Applicable - Core Measures Any of the following diagnoses?: none Exam - Constitutional Vitals: Temp Pulse Resp BP Pulse Ox 97.9 F 91 H 16 115/70 100 02/04/20 07:52 02/04/20 12:03 02/04/20 10:00 02/04/20 07:52 09/27/20 10:00 General appearance: Present: no acute distress, well-nourished - EENT Eyes: Present: PERRL ENT: hearing intact, clear oral mucosa - Neck Neck: Present: supple, normal ROM - Respiratory Respiratory effort: normal Respiratory: bilateral: CTA - Cardiovascular Heart Sounds: Present: S1 & S2. Absent: rub, click - Extremities Extremities: pulses symmetrical, No edema Peripheral Pulses: within normal limits - Abdominal General gastrointestinal: Present: soft, non-tender, non-distended, normal bowel sounds Female genitourinary: Present: normal - Integumentary Integumentary: Present: clear, warm, dry - Musculoskeletal Musculoskeletal: gait normal, strength equal bilaterally - Psychiatric Psychiatric: appropriate mood/affect, intact judgment & insight - Neurologic Neurologic: CNII-XII intact, moves all extremities Plan Activity: no restrictions Diet: low salt Follow up with: PRIMARY CARE, [Primary Care Provider] - 3-5 Days INGRID MARIE MD [Staff Physician] - 7 Days
== END 2020-02-04 20:40 | disposition home or self-care (01) | DRG 189 ==
LOC: ED 21:58 → 4A 01-31 02:30 → OBSVTOIN 02-01 10:00
PROVIDERS: ADMIT Internal Medicine; ATTEND Internal Medicine
PROC: 4A033R1 Measurement of Arterial Saturation, Peripheral, Percutaneous Approach (ICD-10-PCS; principal; 2020-02-04)
DX: J96.01 Acute respiratory failure with hypoxia (principal); J44.1 Chronic obstructive pulmonary disease with (acute) exacerbation; C34.90 Malignant neoplasm of unspecified part of unspecified bronchus or lung; R07.9 Chest pain, unspecified; Z99.81 Dependence on supplemental oxygen; Z87.891 Personal history of nicotine dependence
CPT/HCPCS: 36415; 36600; 71045; 78580; 80053; 82550; 82553; 82803; 82962; 83880; 84484; 85007; 85025; 85379; 85610; 85730; 93005; 93306; 94640; 94644; 94760; 96361; 96365; 96372; 96375; G0378; A9540; J1644; J1956; J2920; J2930; J3475